=== PATIENT | female | born 1975 | race Caucasian/White ===

== ENCOUNTER 2016-03-23 08:04 | Emergency (ER) | payer OTHER ==
[2016-03-23] MEDS ORDERED: OPTIRAY 350 100 ML VIAL HMH IV ONE (08:05)
[2016-03-23] MEDS ORDERED: DICYCLOMINE 20MG/2ML VIAL IM ONE (08:50)
[2016-03-23] MEDS ORDERED: SODIUM CHLORIDE 0.9% 1,000 ML ONE ×2 (08:50→09:59)
[2016-03-23] MEDS ORDERED: ONDANSETRON 4 MG VIAL ONE (08:50)
== END 2016-03-23 11:14 | disposition home or self-care (01) ==
LOC: ER 08:04
DX: R11.2 Nausea with vomiting, unspecified (principal); R19.7 Diarrhea, unspecified; R74.8 Abnormal levels of other serum enzymes; Z87.891 Personal history of nicotine dependence; Z79.899 Other long term (current) drug therapy; F15.21 Other stimulant dependence, in remission; F32.9 Major depressive disorder, single episode, unspecified; F41.1 Generalized anxiety disorder; M79.7 Fibromyalgia
CPT/HCPCS: 36415; 74022; 80053; 81001; 83690; 84703; 85025; 96361; 96372; 96374

== ENCOUNTER 2016-03-23 17:04 | Inpatient (IN) | payer OTHER ==
[~2016-03-23] VITALS: Ht 167.6 cm; Wt 72.8 kg
[2016-03-23] MEDS ORDERED: SODIUM CHLORIDE 0.9% 1,000 ML ONE (18:13)
[2016-03-23] MEDS ORDERED: ONDANSETRON 4 MG VIAL ONE (18:24)
[2016-03-23] MEDS ORDERED: DILAUDID 1 MG/ML AMP ONE ×2 (18:24→20:27)
[2016-03-23] MEDS ORDERED: DICYCLOMINE 20MG/2ML VIAL IM ONE (20:30)
[2016-03-23] MEDS ORDERED: PHARMACY TO DOSE LEVAQUIN IV SCH (21:15)
[2016-03-23] MEDS ORDERED: SALINE FLUSH 10 ML FLUSH PRN (21:15)
[2016-03-23 22:57] VITALS: BP_SYST 136; RESP 18; TEMP 97.3
[2016-03-23 22:58] VITALS: Ht 167.6 cm; Wt 72.8 kg
[2016-03-23] MEDS: MORPHINE 2 MG/ML SYR IV PRN (23:04)
[2016-03-23] MEDS: SODIUM CHLORIDE 0.9% 1,000 ML IV SCH (23:04)
[2016-03-23] MEDS ORDERED: LEVOFLOXACIN 750 MG/150 ML 150 ML IV SCH (23:05)
[2016-03-23] MEDS: SALINE FLUSH 10 ML FLUSH SCH (23:53)
[2016-03-24] MEDS: METRONIDAZOLE 500MG/100ML 100 ML IV SCH ×3 (01:35→12:45)
[2016-03-24] MEDS: SODIUM CHLORIDE 0.9% FLUSH BAG 500 ML IV SCH (02:56)
[2016-03-24] MEDS: MORPHINE 2 MG/ML SYR IV PRN ×7 (03:31→23:56)
[2016-03-24 07:36] VITALS: BP_SYST 132; RESP 18; TEMP 97.8
[2016-03-24] MEDS: SALINE FLUSH 10 ML FLUSH SCH ×2 (08:00→20:00)
[2016-03-24] MEDS: SODIUM CHLORIDE 0.9% 1,000 ML IV SCH ×2 (09:38→23:54)
[2016-03-24] MEDS: BUSPIRONE HCL 15 MG TAB PO SCH ×2 (09:40→20:26)
[2016-03-24] MEDS: CITALOPRAM 20 MG TAB PO SCH (09:40)
[2016-03-24] MEDS ORDERED: MISSING DOSE XX ONE (11:40)
[2016-03-24] MEDS: DICYCLOMINE 10 MG CAP PO PRN ×2 (12:45→23:54)
[2016-03-24 16:02] VITALS: BP_SYST 154; RESP 18; TEMP 98.1
[2016-03-24] MEDS ORDERED: ACETAMINOPHEN 325 MG TAB PO PRN (16:20)
[2016-03-24 19:20] VITALS: BP_SYST 149; RESP 18; TEMP 98.7
[2016-03-24 23:55] VITALS: BP_SYST 141; RESP 18; TEMP 98
[2016-03-25] MEDS: MORPHINE 2 MG/ML SYR IV PRN ×3 (04:33→10:57)
[2016-03-25] MEDS: SODIUM CHLORIDE 0.9% FLUSH BAG 500 ML IV SCH (05:37)
[2016-03-25 07:29] VITALS: BP_SYST 146; RESP 18; TEMP 98.2
[2016-03-25] MEDS: SALINE FLUSH 10 ML FLUSH SCH (08:00)
[2016-03-25] MEDS ORDERED: LEVOFLOXACIN 750 MG TAB PO SCH (09:00)
[2016-03-25] MEDS: BUSPIRONE HCL 15 MG TAB PO SCH (10:54)
[2016-03-25] MEDS: DICYCLOMINE 10 MG CAP PO PRN (10:54)
[2016-03-25] MEDS: CITALOPRAM 20 MG TAB PO SCH (10:54)
[2016-03-25 11:41] VITALS: BP_SYST 138; RESP 18; TEMP 98.3
[2016-03-25 13:40] VITALS: BP_SYST 138; RESP 18; TEMP 98.3
== END 2016-03-25 14:40 | disposition home or self-care (01) | DRG 373 ==
LOC: ENRESERV → ENRESERVTM → ENRESERVDT → ER 17:04 → EMR 21:13 → ENPENDDIS 21:13 → 4NT 22:56
PROVIDERS: ADMIT Internal Medicine; ATTEND Internal Medicine
DX: A04.5 Campylobacter enteritis (principal); F32.9 Major depressive disorder, single episode, unspecified; M79.7 Fibromyalgia; F41.9 Anxiety disorder, unspecified; F17.210 Nicotine dependence, cigarettes, uncomplicated; F19.21 Other psychoactive substance dependence, in remission; R74.0 Nonspecific elevation of levels of transaminase and lactic acid dehydrogenase [LDH]
CPT/HCPCS: 36415; 74177; 80053; 80074; 82274; 83630; 84703; 85025; 85610; 85652; 86141; 86701; 87040; 87045; 87046; 87177; 87493; 96361; 96372; 96374; 96375; 96376; 99222; 99233; 99238